=== PATIENT | male | born 1975 | race American Indian/Alaskan Native ===

== ENCOUNTER 2017-01-30 18:38 | Emergency (ER) | payer OTHER ==
[2017-01-30 19:30] VITALS: BP 125/77
[2017-01-30] MEDS ORDERED: MOTRIN PO ONE (20:41)
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
== END 2017-01-30 21:05 | disposition home or self-care (01) ==
LOC: ED 18:38
DX: S13.4XXA Sprain of ligaments of cervical spine, initial encounter (principal); M54.6 Pain in thoracic spine; F17.200 Nicotine dependence, unspecified, uncomplicated; V89.2XXA Person injured in unspecified motor-vehicle accident, traffic, initial encounter; Y93.89 Activity, other specified; Y99.9 Unspecified external cause status; Y92.488 Other paved roadways as the place of occurrence of the external cause
CPT/HCPCS: 99282

== ENCOUNTER 2017-04-09 00:08 | Emergency (ER) | payer OTHER ==
--- NOTE | 2017-04-09 04:09 | XRay Report ---
FINAL REPORT EXAM: XR RT FINGERS CLINICAL INDICATIONS: RT THUMB PAIN FINDINGS: PA view of the right hand was acquired as well as lateral and oblique views of the right thumb. No fracture is seen in the right thumb. No foreign body is identified. IMPRESSION: NO FRACTURE IS SEEN IN THE RIGHT THUMB
--- NOTE | 2017-04-09 04:10 | XRay Report ---
FINAL REPORT EXAM: XR RT HAND CLINICAL INDICATIONS: RT THUMB PAIN FINDINGS: PA and lateral views of the right hand were acquired and demonstrate no fracture the right hand or right thumb. No foreign body is identified. IMPRESSION: THE RIGHT HAND AND THUMB APPEAR INTACT
[2017-04-09 04:36] VITALS: BP 125/61
[2017-04-09] MEDS ORDERED: NORCO 5/325 PO ONE (05:30)
[2017-04-09] MEDS ORDERED: MOTRIN PO ONE (05:30)
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
== END 2017-04-09 06:36 | disposition home or self-care (01) ==
LOC: ED 00:08
DX: S63.601A Unspecified sprain of right thumb, initial encounter (principal); F17.200 Nicotine dependence, unspecified, uncomplicated; W21.05XA Struck by basketball, initial encounter; Y93.67 Activity, basketball; Y92.89 Other specified places as the place of occurrence of the external cause; Y99.8 Other external cause status